=== PATIENT | female | born 1975 | race African-American/Black ===

== ENCOUNTER 2019-10-19 16:50 | Emergency (ER) | payer OTHER ==
[~2019-10-19] VITALS: Ht 152.4 cm; Wt 68.0 kg
[~2019-10-19 16:50] MED LIST: ASA5UEC PO; BACTRIM DS TAB1 EACH PO; CHROMIUM PICO PO; CINNAMON PO; CIPROFLOXACIN500 M3 PO; GLYBURIDE 2.52.5 MG PO; HYDROCODONE-AP1 EAC6 PO; IBUPROFEN 800800 M1 PO; LISINOPRIL5 MG PO; METFORMIN PO; PREDNISONE 20 M20 MG PO; SIMVASTATIN40 MG PO; ZPAK PO
[2019-10-19] MEDS ORDERED: DOXYCYCLINE 10100 MG PO (18:49)
[2019-10-19] MEDS ORDERED: TYLENOL WITH CO1 TA1 PO (18:49)
[2019-10-19 18:58] VITALS: BP 158/65
== END 2019-10-19 18:59 | disposition home or self-care (01) ==
LOC: M.ERS 16:50
DX: L02.31 Cutaneous abscess of buttock (principal); E11.9 Type 2 diabetes mellitus without complications; E78.5 Hyperlipidemia, unspecified; Z98.51 Tubal ligation status; Z98.890 Other specified postprocedural states

== ENCOUNTER 2019-10-22 16:44 | Emergency (ER) | payer OTHER ==
[~2019-10-22] VITALS: Ht 152.4 cm; Wt 68.0 kg
[~2019-10-22 16:44] MED LIST changes: +DOXYCYCLINE 10100 MG PO; +TYLENOL WITH CO1 TA1 PO
[2019-10-22] MEDS ORDERED: TYLENOL WITH CO1 TA1 PO (17:36)
[2019-10-22 18:06] VITALS: BP 196/96
== END 2019-10-22 18:07 | disposition home or self-care (01) ==
LOC: M.ERS 16:44
DX: L02.31 Cutaneous abscess of buttock (principal); E11.9 Type 2 diabetes mellitus without complications; E78.5 Hyperlipidemia, unspecified; Z98.890 Other specified postprocedural states; Z98.51 Tubal ligation status

== ENCOUNTER → 2020-03-13 | Outpatient (CLI) | payer OTHER | LOC: M.ULTRA 08:51 | DX: N32.89 Other specified disorders of bladder (principal); N18.2 Chronic kidney disease, stage 2 (mild) ==

== ENCOUNTER → 2021-01-22 | Outpatient (CLI) | payer OTHER | LOC: M.ULTRA 01-02 09:30 | PROVIDERS: ATTEND Nurse Practitioner Family | DX: Z12.31 Encounter for screening mammogram for malignant neoplasm of breast (principal); D64.9 Anemia, unspecified; N85.8 Other specified noninflammatory disorders of uterus; L72.8 Other follicular cysts of the skin and subcutaneous tissue ==

== ENCOUNTER 2021-09-10 13:40 | Emergency (ER) | payer OTHER ==
[~2021-09-10] VITALS: Ht 154.9 cm; Wt 66.7 kg
[2021-09-10] MEDS ORDERED: LIPITOR10 MG PO (13:46)
[2021-09-10] MEDS ORDERED: NORVASC5 MG PO (13:46)
[2021-09-10] MEDS ORDERED: METFORMIN HCL500 M3 PO (13:46)
[2021-09-10] MEDS ORDERED: OMEPRAZOLE 20 M20 M1 PO (13:47)
[2021-09-10 15:39] VITALS: BP 140/70
--- NOTE | 2021-09-10 15:44 | EKG ---
[place] [address] ELECTROCARDIOGRAM REPORT Name: BILL TERAN V Room: [facility]#: [id number] Admission: 09/10/21 Attend Phys: Discharge: 09/10/21 Date of : 71 Date of Service: 09/10/21 1409 Report #: [id number] THIS REPORT FOR: //name// [facility] ED Test Date: 2021-09-10 Test Time: 14:09:16 Pat Name: BILL FELICIANODWELL Department: Room: Gender: Professor Of Management: : 1975 Requested By: Benjy Allen Order Number: [id number] MD: Gucci Toribio Measurements Intervals [place] Rate: 96 P: 54 CO: 124 QRS: 72 QRSD: 97 T: 24 QT: 335 QTc: 424 Interpretive Statements Sinus rhythm Consider right atrial enlargement Baseline wander in lead(s) I,III,aVL Compared to ECG 02/29/2016 14:02:12 Atrial abnormality now present Poor R-wave progression no longer present Electronically Signed On 09-10-2021 15:44:27 LOAD MIXER by Gucci Toribio [email or web address] <ELECTRONICALLY SIGNED> By: Gucci Toribio MD, FACC 09/10/21 1544 1409 1409 Gucci Toribio MD, FACC /EPI
== END 2021-09-10 15:41 | disposition home or self-care (01) ==
LOC: M.ERS 13:40
DX: S16.1XXA Strain of muscle, fascia and tendon at neck level, initial encounter (principal); S70.02XA Contusion of left hip, initial encounter; S60.221A Contusion of right hand, initial encounter; E11.9 Type 2 diabetes mellitus without complications; E78.5 Hyperlipidemia, unspecified; I12.9 Hypertensive chronic kidney disease with stage 1 through stage 4 chronic kidney disease, or unspecified chronic kidney disease; N18.30 Chronic kidney disease, stage 3 unspecified; Z79.899 Other long term (current) drug therapy; Z98.51 Tubal ligation status; V89.2XXA Person injured in unspecified motor-vehicle accident, traffic, initial encounter; Y93.89 Activity, other specified; Y92.89 Other specified places as the place of occurrence of the external cause; Y99.8 Other external cause status